=== PATIENT | male | born 1970 | race Caucasian/White ===

== ENCOUNTER → 2024-04-24 | Outpatient (REF) | LOC: M PLAIMG 15:06 | PROVIDERS: ATTEND Internal Medicine | DX: R52 Pain, unspecified (principal) ==

== ENCOUNTER → 2024-11-05 | Outpatient (REF) | LOC: M PLAIMG 10:29 | PROVIDERS: ATTEND Internal Medicine | DX: R52 Pain, unspecified (principal) ==